=== PATIENT | female | born 2000 | race Asian ===

== ENCOUNTER 2025-04-10 11:13 | Outpatient (CLI) | payer OTHER, SELFPAY ==
--- NOTE | ~2025-04-10 | US_ITS ---
EXAM/PROCEDURE: US OB transvaginal HISTORY: Spotting complicating , first trimester COMPARISON: None available. TECHNIQUE: Directed exam for evaluating viability FINDINGS: A single viable intrauterine gestation appears to be present, with probable cardiac motion seen on cinematic images. However heart tones are not demonstrated and heart rate is not recorded. EGA by dates and ultrasound 5 weeks 4 days and 5 weeks 6 days is recommended EDC by dates and ultrasound December 07 and December 05, 2025 Right ovary: 2.5 x 1.3 x 2.3 cm Left ovary: 2.6 x 2.9 x 3.0 cm Both ovaries appear normal. No free fluid seen. IMPRESSION: Likely viable intrauterine gestation with concordant dates. heart rate is not established on this exam. Correlate with follow-up clinical exam and/or quantitative hCG levels. Repeat viability scan in 7-10 days recommended; sooner if clinical appropriate. Reviewed, dictated and finalized at location A. USION SPECIAL EDUCATOR IMPRESSION: Likely viable intrauterine gestation with concordant dates. heart rate is not established on this exam. Correlate with follow-up clinical exam and/or qu antitative hCG levels. Repeat viability scan in 7-10 days recommended; sooner i f clinical appropriate.
== END 2025-04-10 11:14 | disposition home or self-care (01) ==
LOC: MICIMG 11:14
DX: O26.851 Spotting complicating pregnancy, first trimester (principal); Z3A.00 Weeks of gestation of pregnancy not specified
CPT/HCPCS: 76817

== ENCOUNTER 2025-04-29 11:58 | Outpatient (CLI) | payer OTHER, SELFPAY ==
--- NOTE | ~2025-04-29 | US_ITS ---
EXAMINATION: US OB <= 14 weeks fetus DATE: 04/29/2025 12:35 INDICATION: Spotting during first trimester TECHNIQUE: Real-time pelvic ultrasound utilizing both a transvaginal and transabdominal probe was performed. The interpreting radiologist was not present for the study. COMPARISON: None. FINDINGS: The uterus measures 8.2 x 7.9 x 6.2 cm. There is an intrauterine gestational sac. A yolk sac and pole are identified. The crown rump length measures 1.9 cm, which is concordant with the previously estimated gestational age of 8 weeks and 2 days. heart motion is identified measuring 161 beats per minute (bpm) by M-mode Doppler. The right ovary measures 3.7 x 2.5 x 2.0 cm. The left ovary measures 3.5 x 3.3 x 2.8 cm. 1.9 cm anechoic likely corpus luteum cyst at the left ovary. There is no free fluid in the pelvis. IMPRESSION: 1. Single living fetus with heart rate of 161 bpm. 2. [place]-rump length of 1.9 cm which is concordant with the previously estimated gestational age by ultrasound of 8 weeks 2 days based upon ultrasound performed on 04/10/2025 with ultrasound estimated date of delivery (TARIK) of 12/05/2025. Reviewed, dictated and finalized at location A. ATION ADVISER IMPRESSION: 1. Single living fetus with heart rate of 161 bpm. 2. [place]-rump length of 1.9 cm which is concordant with the previously estimate d gestational age by ultrasound of 8 weeks 2 days based upon ultrasound perform ed on 04/10/2025 with ultrasound estimated date of delivery (TARIK) of 12/05/2025.
== END 2025-04-29 11:59 | disposition home or self-care (01) ==
LOC: MICIMG 11:58
PROVIDERS: Visit Provider Obstetrics & Gynecology Gynecology
DX: O26.851 Spotting complicating pregnancy, first trimester (principal); Z3A.00 Weeks of gestation of pregnancy not specified
CPT/HCPCS: 76801